=== PATIENT | male | born 1970 | race Caucasian/White ===

== ENCOUNTER 2017-10-19 01:50 | Emergency (ER) | payer BC ==
--- NOTE | 2017-10-19 02:09 | ERNOTE ---
Medical Problem HPI - Narrative Date of Service: 10/19/17 - General Time Seen by Provider: 10/19/17 02:04 Source: patient Exam Limitations: no limitations - Immun/Allergies/Home Medications Allergies/Adverse Reactions: Allergies No Known Allergies Allergy (Unverified 10/08/12 09:49) Home Medications: HOME MEDICATIONS Metoprolol Succinate 25 mg PO DAILY 10/08/12 [Last Taken Unknown] - History of Present History Narrative: Has not been able to urinate for several hours. He has not had any previous problems of urinary retention. Denies any fevers or chills. Bladder US demonstrated 999 ml in the urinary bladder. Date (Duration): 10/19/17 Time (Timing): 02:06 Timing: constant Modifying Factors - (Improves): Present: other - nothing Modifying Factors - (Worsens): Present: other - nothing Review of Systems - Review of Systems Constitutional: Present: no symptoms reported EYE: Present: no symptoms reported ENT: Present: no symptoms reported Respiratory: Present: no symptoms reported Cardiology: Present: no symptoms reported Gastrointestinal/Abdominal: Present: no symptoms reported Genitourinary: Present: See HPI Musculoskeletal: Present: no symptoms reported Skin: Present: no symptoms reported Neurological: Present: no symptoms reported Endocrine: Present: no symptoms reported Hematologic/Lymphatic: Present: no symptoms reported Psych: Present: no symptoms reported - Patient's Past Medical History Patient History - Medical: No pertinent hx Patient History - Surgical Procedures: No surgical history - Family History Mother Family History - Medical: No pertinent hx Father Family History - Medical: No pertinent hx Physical Exam - Physical Exam General Appearance: Present: mild distress Head Exam: Present: normal inspection Eye Exam: Normal inspection: bilateral, PERRL: bilateral, EOMI: bilateral Ears, Nose, Throat: Present: normal ENT inspection Neck: Present: normal inspection Respiratory: Present: no respiratory distress Cardiovascular/Chest: Present: regular rate, rhythm Gastrointestinal/Abdominal: Present: no organomegaly, other - fullness at the bladder Extremity Exam: Present: normal inspection Neurological Exam: Present: alert, oriented Skin Exam: Present: normal color ED Progress - Results and Orders Patient's Lab Results:: I have reviewed the patient's lab results. - Vital Signs Patient's Vital Signs:: I have reviewed the patient's vital signs. - Progress/Reassessment Progress:: Improved Progress Note-Subjective: 10/19/17 02:08 Whittaker catheter was placed. Departure Clinical Impression: Urinary retention - Departure Disposition: Home self-care Condition: Good Instructions: Acute Urinary Retention, Male, [id number], Whittaker Catheter Care , Adult Print Language: Occitan Additional Instructions: If there are any problems with the Whittaker catherter return to the ED. Referrals: Jimmy Hill DO [Primary Care Provider] - Efrain Escobar MD [Associate] -
[2017-10-19 02:29] LABS: Urine Bilirubin Negative (NEGATIVE); Urine Blood 250 /ul (NEGATIVE); Urine Ketone Negative (NEGATIVE); Urine Nitrite Negative (NEGATIVE); Urine Protein Negative (NEGATIVE); Urine Specific Gravity 1.015 SP.GR. (1.005-1.030); Urine Urobilinogen Normal (NORMAL); Urine pH 5.5 pH (5.0-7.0)
[2017-10-19 02:51] LABS: Urine Appearance Clear; Urine Color Yellow
[2017-10-19 02:52] LABS: Urine Bacteria None Seen; Urine RBC 0-5 /hpf (0-5); Urine WBC None Seen /hpf (0-5)
[2017-10-19 03:27] VITALS: BP 119/78
== END 2017-10-19 03:26 | disposition home or self-care (01) ==
LOC: ER 01:50
PROC: 0T9B70Z Drainage of Bladder with Drainage Device, Via Natural or Artificial Opening (ICD-10-PCS; principal; 2017-10-19)
DX: R33.9 Retention of urine, unspecified (principal)